=== PATIENT | female | born 1955 | race Caucasian/White ===

== ENCOUNTER → 2019-07-27 | Day surgery (SDC) | payer MEDICARE ==
[2019-07-24 13:41] LABS: BASOPHILS % 0.3 % (0.0-1.0); EOSINOPHILS # (AUTO) 0.1 (0.0-0.4); EOSINOPHILS % 1.6 % (0.0-6.0); HEMATOCRIT 38.2 % (34.2-44.1); HEMOGLOBIN 12.7 g/dL (12.0-16.0); LYMPHOCYTES # (AUTO) 2.4 (1.0-3.2); MEAN CORPUSCULAR HEMOGLOBIN 31.3 pg (28-32); MEAN CORPUSCULAR HGB CONC 33.2 g/dL (31-35); MEAN CORPUSCULAR VOLUME 94.1 fL (81-99); MONOCYTES # (AUTO) 0.4 (0.2-0.8); MONOCYTES % 5.8 % (4.4-11.3); NEUTROPHILS # (AUTO) 4.3 (2.1-6.9); NEUTROPHILS % 59.2 % (38.7-80.0); PLATELET COUNT 302 x10e3/uL (140-360); RED BLOOD COUNT 4.06 x10e6/uL (3.6-5.1); RED CELL DISTRIBUTION WIDTH 12.5 % (11.7-14.4)
[~2019-07-27] MED LIST: FENTANYL CITRATE/PF 100MCG/2 ML INJ ONE; LISINOPRIL10 MG PO; MELATONIN3 MG PO; MIDAZOLAM HCL 2 MG/2 ML VIAL ONE; MULTI-VITAMIN1 EACH PO; PANTOPRAZOLE SO40 MG PO; PAROXETINE HCL20 MG PO; PLAVIX75 MG PO; PRAVASTATIN SOD40 MG PO; PROPOFOL IV EMULSION 10 MG/ML 20 ML VIAL ONE; VERAPAMIL ER120 MG PO; VIT B12 PO; VIT D3 PO
--- NOTE | 2019-07-27 10:05 | NUR ---
SPIRITUAL CARE - Pre-Surgery Assessment: Pt in bed. Pt's at bedside. Pt reported supportive attention from family and friends. Intervention: I provided pastoral presence, hospitality, and sympathetic listening. I acquainted pt with availability of plant packer while hospitalized. Outcome: Pt expressed appreciation for visit. No need for follow up indicated at this time. FRANKIE [facility] Spiritual Care Department O: [phone] Pager: [phone] ([phone] calling from)
[2019-07-27 12:30] VITALS: BP 113/77
--- NOTE | 2019-07-27 18:27 | Operative Report ---
DATE OF PROCEDURE: SURGEON: Kaleb Banda MD PROCEDURE PERFORMED: Colonoscopy. PREOPERATIVE DIAGNOSIS: History of colon polyps. POSTOPERATIVE DIAGNOSES: Colon polyp, ascending colon, diverticulosis, internal hemorrhoids. PREOPERATIVE MEDICATIONS: Consisted of IV sedation administered under MAC anesthesia. DESCRIPTION OF PROCEDURE: Using [employer] video colonoscope that was inserted in the patient's rectum and advanced without difficulty to the level of the cecum. In the mid ascending colon was a 1.52 cm flat polyp which was removed with electrical snare cautery. Diverticula were seen in the sigmoid and descending colon without evidence of diverticulitis. As we withdrew the colonoscope to the patient's rectum, there were internal hemorrhoids present. The colonoscope was withdrawn from the patient's rectum and the procedure was ended. Kaleb Banda MD SAF/MODL /[id number]
== END | disposition home or self-care (01) ==
LOC: OR 06:31
PROVIDERS: ATTEND Internal Medicine Gastroenterology
DX: Z09 Encounter for follow-up examination after completed treatment for conditions other than malignant neoplasm (principal); K63.5 Polyp of colon; K57.30 Diverticulosis of large intestine without perforation or abscess without bleeding; K64.8 Other hemorrhoids; K59.04 Chronic idiopathic constipation; K21.9 Gastro-esophageal reflux disease without esophagitis; I10 Essential (primary) hypertension; E78.2 Mixed hyperlipidemia; Z88.7 Allergy status to serum and vaccine; Z01.810 Encounter for preprocedural cardiovascular examination; Z01.812 Encounter for preprocedural laboratory examination; Z79.02 Long term (current) use of antithrombotics/antiplatelets; Z68.42 Body mass index [BMI] 45.0-49.9, adult; Z86.73 Personal history of transient ischemic attack (TIA), and cerebral infarction without residual deficits
CPT/HCPCS: 36415; 45385; 85025; 88305; 93005; J2704; J2250; J3010